=== PATIENT | male | born 1945 | race Two or more races ===

== ENCOUNTER 2017-01-26 09:16 | Day surgery (SDC) | payer OTHER ==
[~2017-01-26] VITALS: Ht 165.1 cm; Wt 84.4 kg
[~2017-01-26 09:16] MED LIST: ASPI-727 PO; AZIT250T94 PO; CALC500T10 PO; CELE200C PO; CYAN100080 PO; DOCU-144 PO; DONE10TA7 PO; ESCI5SOL PO; FERR325C PO; LORA1TAB54 PO; MAGN27TA4 PO; METO-448 PO; NIT4 SL; NORT25CA PO; OLOP2.5D OP; PANT40TA3 PO; SIMV20TA2 PO; TBDX5OP OP; TYL500 PO; VIT1TABL77 PO; [UNRECOGNIZED DRUG - CODE] OP; [UNRECOGNIZED DRUG - CODE] PO
[2017-01-26 10:14] VITALS: Ht 165.1 cm; Wt 84.4 kg
[2017-01-26] MEDS ORDERED: MIDAZOLAM 1 MG/ML 2 ML INJ ONE (10:30)
[2017-01-26] MEDS ORDERED: FENTAnyl 50 MCG/ML VIAL ONE ×2 (10:30)
[2017-01-26] MEDS ORDERED: PROPOFOL 20 ML ONE (10:30)
[2017-01-26 10:35] VITALS: BP 124/67; PULSE 62; RESP 16
--- NOTE | 2017-01-26 11:23 | GILP ---
DATE OF PROCEDURE: 01/26/2017 NAME OF PROCEDURE: Colonoscopy. SURGEON: Howard Valentine MD PREOPERATIVE DIAGNOSIS: Positive occult blood in stool. POSTOPERATIVE DIAGNOSES: 1. Colonoscopy all the way to the cecum. 2. Internal hemorrhoids. 3. No colon neoplasm was identified. INDICATION FOR THE PROCEDURE: Mr. Andrea Booth is a 71-year-old male patient who had positive occul t blood in stool. Patient was scheduled for colonoscopy for further evaluation. The procedure and possible complications are well explained to the patient. The patient understood and consented to the procedure. DESCRIPTION OF PROCEDURE: Under the influence of anesthesia, the colonoscope was carefully introduc ed in the rectum and under direct vision, it was advanced all the way to the cecum. FINDINGS: The patient had internal hemorrhoids. No colon neoplasm was identified. He tolerated the procedure very well and there was no complication from the procedure. At the end o f the procedure, he was awake with stable vital signs and he was discharged home to the care of his family. IMPRESSION: 1. Colonoscopy all the way to the cecum. 2. Internal hemorrhoids. 3. No colon neoplasm was identified. PLAN: Because of the patient's age, the patient does not need another screening colonoscopy. Dictated By: HOWARD SAINZ/GIN Conf#: [id number] DID#: [id number] CC: HOWARD VALENTINE MD;*EndCC*
[2017-01-26 11:30] VITALS: BP 108/69; PULSE 58; RESP 18
== END 2017-01-26 19:02 | disposition home or self-care (01) ==
LOC: GIL 09:16
PROVIDERS: ATTEND Internal Medicine Gastroenterology
DX: K92.1 Melena (principal); K64.4 Residual hemorrhoidal skin tags; I10 Essential (primary) hypertension; E78.5 Hyperlipidemia, unspecified; I25.10 Atherosclerotic heart disease of native coronary artery without angina pectoris
CPT/HCPCS: 45378; J2250; J3010; Z7610

== ENCOUNTER 2019-03-04 02:35 | Emergency (ER) | payer MEDICARE, OTHER ==
[~2019-03-04] VITALS: Wt 79.5 kg
[~2019-03-04 02:35] MED LIST changes: -AZIT250T94 PO; -CALC500T10 PO; -CELE200C PO; -CYAN100080 PO; -MAGN27TA4 PO; -NIT4 SL; +NITR0.4T39 SL
--- NOTE | 2019-03-04 04:30 | ERD ---
ER Documentation Chief Complaint Chief Complaint bib self, cc: constipation, abd. pain, HPI Is a 73-year-old male complains of constipation for the past 3 to 4 days for last problems 3 days ago. Denies fevers chills. Mild nausea but no vomiting. No other current complaints. Pain is mild to moderate intensity no exacerbating alleviating factors. ROS All systems reviewed and are negative except as per history of present illness. Medications Home Meds Active Scripts Loratadine/Pseudoephedrine* (Claritin-D* 12 Hr) 5-120 Mg Tab.er.12h, 1 TAB PO Q12, #60 TAB.SA Prov:CAROL LAZO. DO 01/21/16 Reported Medications Escitalopram Oxalate (Lexapro) 5 Mg/5 Ml Solution, 10 MG PO DAILY, ML 02/22/14 Tobramycin-Dexamethasone* (Tobradex* Ophth) 5 Ml Susp, 5 ML OP BID, #1 02/22/14 Vit B Comp & C/Calcium Carb (GNP B-COMPLEX TABLET) 1 Each Tablet, 1 EACH PO DAILY 02/22/14 Nortriptyline Hcl* (Nortriptyline Hcl*) 25 Mg Capsule, 20 MG PO 02/22/14 Donepezil* (Aricept*) 10 Mg Tablet, 10 MG PO DAILY, TAB 02/22/14 Simvastatin (Simvastatin) 20 Mg Tablet, 20 MG PO DAILY, TAB 02/22/14 Multivitamins (One Daily) 1 Tab Tablet, 1 TAB PO DAILY 02/22/14 Olopatadine* (Pataday*) 2.5 Ml Drops, 2.5 ML OP BID 02/22/14 Nitroglycerin* (Nitrostat*) 0.4 Mg Tab.subl, 0.4 MG SL [id number] PRN for PAIN 02/22/14 Acetaminophen (Acetaminophen) 500 Mg Tab, 500 MG PO Q4H PRN for PAIN, TAB 02/22/14 Metoprolol Tartrate* (Lopressor*) 25 Mg Tab, 25 MG PO BID, TAB 02/22/14 Propylene Glycol/Peg (Systane) 5 Ml Drops, 5 ML OP PRN 08/07/12 Ferrous Sulfate (Iron) 325 Mg Capsr, 325 MG PO DAILY 08/07/12 Docusate Sodium* (Colace*) 100 Mg Capsule, 100 MG PO BID 08/07/12 Pantoprazole* (Protonix*) 40 Mg Tablet.dr, 40 MG PO DAILY 08/07/12 Aspirin (Adult Aspirin) 81 Mg Tab.chew, 81 MG PO DAILY 08/07/12 Allergies Allergies: Coded Allergies: No Known Allergy (Unverified , 02/02/16) PMhx/Soc History of Surgery: Yes (CABG) Anesthesia Reaction: No Hx Neurological Disorder: No Hx Respiratory Disorders: No Hx Cardiac Disorders: No (CAD, HYPERLIPIDEMIA, HTN) Hx Psychiatric Problems: Yes (DEPRESSION) Hx Miscellaneous Medical Probl: No Hx Alcohol Use: No Hx Substance Use: No Hx Tobacco Use: No Smoking Status: Never smoker Physical Exam Vitals Vital Signs Date Temp Pulse Resp B/P (MAP) Pulse Ox O2 O2 Flow FiO2 Time Delivery Rate 03/04/19 97.5 70 19 155/88 98 04:09 (110) 03/04/19 97.5 71 19 138/80 98 Room Air 04:09 (99) Physical Exam Const: No acute distress Head: Atraumatic Eyes: Normal Conjunctiva ENT: Normal External Ears, Nose and Mouth. Neck: Full range of motion. No meningismus. Resp: Clear to auscultation bilaterally Cardio: Regular rate and rhythm, no murmurs Abd: Soft, non tender, non distended. Normal bowel sounds Skin: No petechiae or rashes Back: No midline or flank tenderness Ext: No cyanosis, or edema Neur: Awake and alert Psych: Normal Mood and Affect Result Diagram: 03/04/19 0345 03/04/19 0345 Results 24 hrs Laboratory Tests Test 03/04/19 03:45 White Blood Count 6.6 10^3/ul Red Blood Count 4.34 10^6/ul Hemoglobin 13.6 g/dl Hematocrit 41.0 % Mean Corpuscular Volume 94.5 fl Mean Corpuscular Hemoglobin 31.3 pg Mean Corpuscular Hemoglobin Concent 33.2 g/dl Red Cell Distribution Width 13.0 % Platelet Count 168 10^3/UL Mean Platelet Volume 10.7 fl Immature Granulocytes % 0.300 % Neutrophils % 45.4 % Lymphocytes % 43.5 % Monocytes % 7.2 % Eosinophils % 3.0 % Basophils % 0.6 % Nucleated Red Blood Cells % 0.0 /100WBC Immature Granulocytes # 0.020 10^3/ul Neutrophils # 3.0 10^3/ul Lymphocytes # 2.9 10^3/ul Monocytes # 0.5 10^3/ul Eosinophils # 0.2 10^3/ul Basophils # 0.0 10^3/ul Nucleated Red Blood Cells # 0.0 10^3/ul Sodium Level 141 mmol/L Potassium Level 4.9 mmol/L Chloride Level 107 mmol/L Carbon Dioxide Level 27 mmol/L Anion Gap 7 Blood Urea Nitrogen 23 mg/dl Creatinine 1.67 mg/dl Est Glomerular Filtrat Rate mL/min mL/min Glucose Level 134 mg/dl Calcium Level 10.3 mg/dl Total Bilirubin 0.4 mg/dl Direct Bilirubin 0.00 mg/dl Indirect Bilirubin 0.4 mg/dl Aspartate Amino Transf (AST/SGOT) 33 IU/L Alanine Aminotransferase (ALT/SGPT) 18 IU/L Alkaline Phosphatase 51 IU/L Total Protein 7.6 g/dl Albumin 4.4 g/dl Globulin 3.20 g/dl Albumin/Globulin Ratio 1.37 Amylase Level 139 U/L Lipase 82 U/L Procedures/MDM X-ray Abdomen 1V Interpreted by me: Free Air: [None] Bowel Gas: [Nonspecific] Soft Tissue: [Normal] Medical decision making: This is a 94 mL here with constipation. Patient is stable for outpatient management. Be discharged home with Colace and Bentyl. Is to follow-up in 8 hours for serial abdominal exams which he agrees. Patient's gastrointestinal symptoms have stabilized while in the department. No evidence of severe dehydration, sepsis, or surgical abdomen. Extensive discussion with family and patient that occult disease cannot be ruled out. 8 hour recheck for repeat abdominal exam is planned. Departure Diagnosis: Primary Impression: Constipation Constipation type: unspecified constipation type Qualified Codes: K59.00 - Constipation, unspecified Condition: Stable SERGEYJULIOFarrah March 04, 2019 04:30
[2019-03-04] MEDS ORDERED: DOCU-144 PO (04:31)
[2019-03-04] MEDS ORDERED: DICY10CA40 PO (04:31)
[2019-03-04 04:50] VITALS: BP 140/82; PULSE 72; RESP 19
[2019-03-04] MEDS ORDERED: MAGNESIUM CITRATE 300 ML BTL PO ONE (05:00)
== END 2019-03-04 05:06 | disposition home or self-care (01) ==
LOC: E/R 02:35
DX: K59.00 Constipation, unspecified (principal); I25.10 Atherosclerotic heart disease of native coronary artery without angina pectoris; I10 Essential (primary) hypertension; Z79.82 Long term (current) use of aspirin; Z95.1 Presence of aortocoronary bypass graft
CPT/HCPCS: 74018; 80053; 80076; 82150; 83690; 85025